=== PATIENT | male | born 1980 | race African-American/Black ===

== ENCOUNTER 2019-12-16 15:24 | Emergency (ER) | payer OTHER, SELFPAY ==
--- NOTE | ~2019-12-16 | XR_ITS ---
EXAMINATION: XR foot RT min 3V EXAM DATE: 12/16/2019 18:44 INDICATION: No known recent injury provided at this time. Pain of the right foot. TECHNIQUE: Right foot dorsoplantar, lateral and oblique projections obtained and reviewed. There is no prior study for comparison. FINDINGS: Right metatarsal bones unremarkable. 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 There are no bony erosions identified. There are no acute fractures or dislocations id entified. There is no subcutaneous gas. There is soft tissue swelling over the forefoot. There are no radiopaque foreign bodies. IMPRESSION: 1. XR foot RT min 3V exam without acute osseous findings. 2. Soft tissue swelling. Reviewed, dictated and finalized at location A.
[2019-12-16 17:13] VITALS: BP 169/92; PULSE 104; RESP 19; TEMP 36.8; O2SAT 98
[2019-12-16 17:33] LABS: Basophils Percent Auto 0.3 % (0.2-1.2); Eosinophils Absolute Auto 0.2 K/mm3 (0-0.3); Eosinophils Percent Auto 2.3 % (0-4.4); Hematocrit 43.2 % (42.0-52.0); Hemoglobin 14.5 g/dL (14.0-18.0); Immature Granulocyte Absolute 0.01 K/mm3 (0.00-0.031); Immature Granulocyte Percent A 0.1 % (0-0.5); Lymphocytes Absolute Auto 2.22 K/mm3 (0.9-3.2); Lymphocytes Percent Auto 28.7 % (18.3-44.2); Mean Corpuscular HGB Conc 33.6 g/dl (32-36); Mean Corpuscular Hemoglobin 27.1 pg (26-34); Mean Corpuscular Volume 80.6 fl (80-100); Mean Platelet Volume 12.5 fl (7.4-10.4); Monocytes Absolute Auto 0.6 K/mm3 (0.1-0.6); Monocytes Percent Auto 7.4 % (2.6-8.5); Neutrophils Absolute Auto 4.7 K/mm3 (1.3-6.7); Neutrophils Percent Auto 61.2 % (45.5-73.1); Platelet Count Result 223 k/mm3 (150-375); Red Blood Count 5.36 M/mm3 (4.6-6.20); Red Cell Distribution Width 13.9 % (11.5-14.5); White Blood Count 7.7 K/mm3 (4.5-10.0)
[2019-12-16 17:43] LABS: Anion Gap 9 mmol/L (8-16); Blood Urea Nitrogen 12 mg/dL (9-20); CRP 1.7 mg/dL (<1.0); Calcium 9.9 mg/dL (8.4-10.2); Carbon Dioxide 31 mmol/L (22-30); Chloride 102 mmol/L (98-107); Estimated CRCL calculation 95 ml/min; Estimated Glomerular Filt Rate > 60; Glucose 103 mg/dL (75-110); Potassium 4.3 mmol/L (3.4-5.0); Sodium 142 mmol/L (137-145); Uric Acid 9.3 mg/dL (3.5-8.5)
--- NOTE | 2019-12-16 19:04 | ED.EXTPRO ---
HPI - Extremity Problem General Chief complaint: Extremity Problem,Nontraumatic Stated complaint: R FOOT SWELLING X3D Time Seen by Provider: 12/16/19 18:34 Source: patient Mode of arrival: ambulatory Limitations: no limitations History of Present Illness HPI Narrative: Patient is a 39-year-old male who presents to emergency department for evaluation of swelling of the right foot with pain about the great toe he denies injury trauma or similar occurrence patient tried [id number] medications with minimal improvement patient presents in no distress notes pain even with light touch or activity and now has some swelling across the forefoot Related Data Home Medications Medication Instructions Recorded Confirmed lisinopril-hydrochlorothiazide 1 tablet PO DAILY 12/16/19 Allergies Allergy/AdvReac Type Severity Reaction Status Date / Time No Known Allergies Allergy Verified 12/16/19 18:52 Review of Systems Review of Systems: All systems reviewed & are unremarkable except as noted in HPI and below PMFSH Past Medical History Medical History (Updated 12/16/19 @ 19:17 by Hever Meneses PA-C) Hypertension Social History Social History (Updated 12/16/19 @ 19:06 by Hever Meneses PA-C) Smoking status: Never smoker Gender identity (if verbalized by the patient): Male Exam Narrative: Exam Narrative: GENERAL: Well-appearing, well-nourished, and in no acute distress. HEAD: Normocephalic, atraumatic. EYES: PERRLA and EOMI. ENT: Nares clear, no rhinorrhea or epistaxis. Mucous membranes moist. CHEST: Clear to auscultation. No respiratory distress. No wheezes rales or rhonchi HEART: Regular rate and rhythm. No murmur heard. EXTREMITIES: Tenderness and swelling of the right great toe with some swelling across the forefoot without tenderness SKIN: Warm, dry, no rash. NEURO: No focal deficits. Alert and oriented x3. Neurovascularly intact. Capillary refill less than 2 seconds PSYCH: Normal mood and affect. Course Course Emergency Course: Patient with probable gout will be treated accordingly given primary care follow-up felt appropriate for outpatient reevaluation Vital Signs Vital signs: Vital Signs Temperature 98.2 F 12/16/19 17:13 Pulse Rate 104 H 12/16/19 17:13 Respiratory Rate 19 12/16/19 17:13 Blood Pressure 169/92 H 12/16/19 17:13 Pulse Oximetry 98 12/16/19 17:13 Temperature 98.2 F 12/16/19 17:13 Pulse Rate 104 H 12/16/19 17:13 Respiratory Rate 19 12/16/19 17:13 Blood Pressure 169/92 H 12/16/19 17:13 Pulse Oximetry 98 12/16/19 17:13 MDM - Extremity (Nontraumatic) MDM Narrative Medical decision making narrative: Patients injury or pain is consistent with musculoskeletal etiology. No signs of neurological or vascular compromise on exam. Compartments and tisues are soft without signs of compartment syndrome. Pain is felt appropriate for further evaluation on an outpatient basis. Patient felt appropriate for outpatient reevaluation given reasons to return Lab Data Result diagrams: 12/16/19 17:21 12/16/19 17:21 Labs: Lab Results 12/16/19 12/16/19 Range/Units 17:21 17:21 WBC 7.7 (4.5-10.0) K/mm3 RBC 5.36 (4.6-6.20) M/mm3 Hgb 14.5 (14.0-18.0) g/dL Hct 43.2 (42.0-52.0) % MCV 80.6 (80-100) fl MCH 27.1 (26-34) pg MCHC 33.6 (32-36) g/dl RDW 13.9 (11.5-14.5) % Plt Count 223 (150-375) k/mm3 MPV 12.5 H (7.4-10.4) fl Immature Gran % (Auto) 0.1 (0-0.5) % Neut % (Auto) 61.2 (45.5-73.1) % Lymph % (Auto) 28.7 (18.3-44.2) % Young % (Auto) 7.4 (2.6-8.5) % Eos % (Auto) 2.3 (0-4.4) % Baso % (Auto) 0.3 (0.2-1.2) % Lymph # (Auto) 2.22 (0.9-3.2) K/mm3 Young # (Auto) 0.6 (0.1-0.6) K/mm3 Eos # (Auto) 0.2 (0-0.3) K/mm3 Baso # (Auto) 0.0 (0.0-0.1) K/mm3 Abs Immat Gran (auto) 0.01 (0.00-0.031) K/mm3 Absolute Neuts (auto) 4.7 (1.3-6.7) K/mm3 Absolute Nucleated RBC
[2019-12-16] MEDS: KETOROLAC (*BKC) 60 MG/2 ML VIAL IM (19:18)
[2019-12-16] MEDS: COLCHICINE 0.6 MG TABLET 1.2 MG PO (19:18)
[2019-12-16 19:53] VITALS: BP 158/78; PULSE 98; RESP 16; O2SAT 100
== END 2019-12-16 19:55 | disposition home or self-care (01) ==
PROVIDERS: Emergency Medicine Emergency Medical Services; Emergency Provider Emergency Medicine; PCP Emergency Medicine
DX: M10.9 Gout, unspecified (principal); I10 Essential (primary) hypertension
CPT/HCPCS: 36415; 73630; 80048; 84550; 85025; 86140; 96372; 99283; A9270; J1885

== ENCOUNTER 2020-07-02 14:58 | Emergency (ER) | payer OTHER, SELFPAY ==
--- NOTE | ~2020-07-02 | XR_ITS ---
EXAMINATION: XR foot LT min 3V DATE: 07/02/2020 15:46 INDICATION: Left foot and ankle pain and swelling TECHNIQUE: Dorsoplantar, two oblique and lateral views of the left foot were obtained. COMPARISON: None. FINDINGS: Alignment is normal. No fracture. Joint spaces are normal. Small heterotopic ossicles along the dista l aspect of the tibiofibular syndesmosis, likely sequela of old trauma. No cortical erosions. Soft ti ssues are unremarkable. No left ankle joint effusion. IMPRESSION: 1. No osseous abnormality of the left foot. Reviewed, dictated and finalized at location A.
[2020-07-02 15:00] VITALS: BP 160/108; PULSE 103; RESP 18; TEMP 36.2; O2SAT 98
--- NOTE | 2020-07-02 15:56 | ED.LOWEXIN ---
HPI - Extremity Injury (Lower) General Chief Complaint: Extremity Injury, Lower Stated Complaint: ankle swelling Time Seen by Provider: 07/02/20 15:11 Source: patient Mode of arrival: ambulatory Limitations: no limitations History of Present Illness HPI Narrative: This is a 39 year old male who presents for evaluation of left foot pain and swelling. He states he woke up with swelling and pain to dorsum of his foot. He had a similar occurrence in his right foot a couple months ago. He states this is similar to previous gout attack. He was prescribed indomethicin at time which resolved his pain. He took tylenol for his pain. He denies injury, numbness, fever, or chills. Related Data Allergies Allergy/AdvReac Type Severity Reaction Status Date / Time No Known Allergies Allergy Verified 07/02/20 15:04 Review of Systems Review of Systems: All systems reviewed & are unremarkable except as noted in HPI and below PMFSH Past Medical History Medical History (Updated 07/02/20 @ 18:51 by Angeles Rolon MD) Gout Hypertension Social History Social History (Updated 12/16/19 @ 19:06 by Hever Meneses PA-C) Smoking status: Never smoker Gender identity (if verbalized by the patient): Male Exam Const: General: no acute distress and alert Nutritional Appearance: obese Orientation/consciousness: patient oriented x3 Eyes: EOM: EOMs intact bilaterally Resp: Effort & Inspection: normal respiratory effort Skin: General skin exam: normal color Rashes: no rashes Neuro: General: patient oriented x3 and moves all extremities Extrem: Other: left foot swelling, no erythema, TTP dorsum at forefoot Psych: Mental Status: mental status grossly normal Affect: normal affect Course Reevaluation(s) Reevaluation #1: I Discussed with patient that he will be presumptively as gout . Labs are unremarkable. He will follow up with PCP on Saturday Date: 07/02/20 Time: 18:39 Vital Signs Vital signs: Vital Signs Temperature 97.1 F L 07/02/20 15:00 Pulse Rate 103 H 07/02/20 15:00 Respiratory Rate 18 07/02/20 15:00 Blood Pressure 160/108 H 07/02/20 15:00 Pulse Oximetry 98 07/02/20 15:00 Temperature 98.9 F 07/02/20 19:03 Pulse Rate 99 07/02/20 19:03 Respiratory Rate 18 07/02/20 19:03 Blood Pressure 168/116 H 07/02/20 19:03 Pulse Oximetry 100 07/02/20 19:03 MDM - Extremity Injury (Lower) Medical Records Attestation: I reviewed the patient's medical records. Lab Data Attestation: I reviewed the patient's lab results. Result diagrams: 07/02/20 18:07 07/02/20 18:07 Labs: Lab Results 07/02/20 07/02/20 07/02/20 Range/Units 18:07 18:07 18:07 WBC 6.9 (4.5-10.0) K/mm3 RBC 5.05 (4.6-6.20) M/mm3 Hgb 13.8 L (14.0-18.0) g/dL Hct 40.8 L (42.0-52.0) % MCV 80.8 (80-100) fl MCH 27.3 (26-34) pg MCHC 33.8 (32-36) g/dl RDW 14.3 (11.5-14.5) % Plt Count 203 (150-375) k/mm3 MPV 11.4 H (7.4-10.4) fl Immature Gran % (Auto) 0.3 (0-0.5) % Neut % (Auto) 56.1 (45.5-73.1) % Lymph % (Auto) 32.5 (18.3-44.2) % [place] % (Auto) 9.6 H (2.6-8.5) % Eos % (Auto) 1.2 (0-4.4) % Baso % (Auto) 0.3 (0.2-1.2) % Lymph # (Auto) 2.23 (0.9-3.2) K/mm3 [place] # (Auto) 0.7 H (0.1-0.6) K/mm3 Eos # (Auto) 0.1 (0-0.3) K/mm3 Baso # (Auto) 0.0 (0.0-0.1) K/mm3 Abs Immat Gran (auto) 0.02 (0.00-0.031) K/mm3 Absolute Neuts (auto) 3.9 (1.3-6.7) K/mm3 Absolute Nucleated RBC 0.0 (0.0-0.012) K/mm3 Nucleated RBC % 0.0 (0.0-0.2) % D-Dimer 0.27 (<0.48) ug/mL Sodium 138 (137-145) mmol/L Potassium 4.1 (3.4-5.0) mmol/L Chloride 105 (98-107) mmol/L Carbon Dioxide 29 (22-30) mmol/L Anion Gap 4 L (8-16) mmol/L BUN 9 (9-20) mg/dL Creatinine 1.00 (0.7-1.3) mg/dL Estim Creat Clear Calc 92 ml/min Estimated GFR > 60 (59 - ) Glucose 109 (75-110)
[2020-07-02] MEDS: COLCHICINE 0.6 MG TABLET 1.2 MG PO (16:35)
[2020-07-02] MEDS: INDOMETHACIN 25 MG CAPSULE 50 MG PO (16:35)
[2020-07-02] MEDS: COLCHICINE 0.6 MG TABLET PO (17:49)
[2020-07-02 17:53] VITALS: BP 159/101; PULSE 91; RESP 20; TEMP 36.6; O2SAT 100
[2020-07-02 18:13] LABS: Basophils Percent Auto 0.3 % (0.2-1.2); Eosinophils Absolute Auto 0.1 K/mm3 (0-0.3); Eosinophils Percent Auto 1.2 % (0-4.4); Hematocrit 40.8 % (42.0-52.0); Hemoglobin 13.8 g/dL (14.0-18.0); Immature Granulocyte Absolute 0.02 K/mm3 (0.00-0.031); Immature Granulocyte Percent A 0.3 % (0-0.5); Lymphocytes Absolute Auto 2.23 K/mm3 (0.9-3.2); Lymphocytes Percent Auto 32.5 % (18.3-44.2); Mean Corpuscular HGB Conc 33.8 g/dl (32-36); Mean Corpuscular Hemoglobin 27.3 pg (26-34); Mean Corpuscular Volume 80.8 fl (80-100); Mean Platelet Volume 11.4 fl (7.4-10.4); Monocytes Absolute Auto 0.7 K/mm3 (0.1-0.6); Monocytes Percent Auto 9.6 % (2.6-8.5); Neutrophils Absolute Auto 3.9 K/mm3 (1.3-6.7); Neutrophils Percent Auto 56.1 % (45.5-73.1); Platelet Count Result 203 k/mm3 (150-375); Red Blood Count 5.05 M/mm3 (4.6-6.20); Red Cell Distribution Width 14.3 % (11.5-14.5); White Blood Count 6.9 K/mm3 (4.5-10.0)
[2020-07-02 18:23] LABS: Anion Gap 4 mmol/L (8-16); Blood Urea Nitrogen 9 mg/dL (9-20); Calcium 9.3 mg/dL (8.4-10.2); Carbon Dioxide 29 mmol/L (22-30); Chloride 105 mmol/L (98-107); Estimated CRCL calculation 92 ml/min; Estimated Glomerular Filt Rate > 60; Glucose 109 mg/dL (75-110); Potassium 4.1 mmol/L (3.4-5.0); Sodium 138 mmol/L (137-145); Uric Acid 8.4 mg/dL (3.5-8.5)
[2020-07-02 18:37] LABS: D Dimer 0.27 ug/mL (<0.48)
[2020-07-02 19:03] VITALS: BP 168/116; PULSE 99; RESP 18; TEMP 37.2; O2SAT 100
[2020-07-02] MEDS: HYDROcodone/acetaminophen (*CRX) 5-325 MG TABLET 1 TAB PO (19:04)
== END 2020-07-02 19:11 | disposition home or self-care (01) ==
PROVIDERS: Emergency Provider General Practice; PCP Emergency Medicine
DX: M79.672 Pain in left foot (principal); M10.9 Gout, unspecified; I10 Essential (primary) hypertension
CPT/HCPCS: 36415; 73630; 80048; 84550; 85025; 85380; 99283; A9270

== ENCOUNTER 2020-10-14 16:03 | Emergency (ER) | payer OTHER, SELFPAY ==
[2020-10-14 16:38] VITALS: BP 184/121; PULSE 104; RESP 17; TEMP 37.4; O2SAT 98
[2020-10-14 18:36] VITALS: BP 183/104; PULSE 94; TEMP 37.4; O2SAT 100
[2020-10-14 22:47] VITALS: BP 160/115; PULSE 100; RESP 16; O2SAT 98
--- NOTE | 2020-10-14 23:08 | ED.GENADULT ---
HPI - General Adult General Chief complaint: Recheck/Abnormal Lab/Rx Stated complaint: having sx after covid vaccine Time Seen by Provider: 10/14/20 21:59 Source: patient Mode of arrival: ambulatory Limitations: no limitations History of Present Illness HPI narrative: 39-year-old male here for a couple of different things He got a Covid vaccination yesterday Today he has fatigue as an achiness and a subjective fever He also had a itchy left eye which is at felt like something was in it but that sensation is virtually completely resolved at this point Last there was mention to him at triage that his blood pressure was quite high and he notes that he was taking lisinopril but found it hard to be in the habit of taking it every day and also found it hard to be in the habit of routinely seeing his primary care doctor for medication refills which they insisted upon so he has not taken it for some time He does not have headaches or chest pain which would seem to be related to the blood pressure elevation Related Data Allergies Allergy/AdvReac Type Severity Reaction Status Date / Time No Known Allergies Allergy Verified 07/02/20 15:04 Review of Systems Review of Systems: All systems reviewed & are unremarkable except as noted in HPI and below Constitutional: Constitutional: Reports no additional constitutional complaints, Reports chills, Reports fatigue, Reports fever(s) and Denies headache(s) Eyes: Eyes: Reports no additional eye complaints and Denies change in vision Comments: Itchy/questionable FB sensation ENT: Denies headache(s) and Denies sore throat Cardiovascular: Cardiovascular: Denies chest pain and Denies dyspnea Respiratory: Respiratory: Denies cough and Denies dyspnea Gastrointestinal: Gastrointestinal: Denies abdominal pain, Denies diarrhea, Denies nausea and Denies vomiting Musculoskeletal: Musculoskeletal: Reports myalgias, Denies deformity, Reports arthralgias and Denies numbness Integumentary/Breasts: Skin/Breast: Denies rash and Denies wounds Neurologic: Reports headache(s), Denies focal weakness and Denies numbness Psychiatric: Psychiatric: Reports no additional psychiatric complaints Endocrine: Endocrine: Reports no additional endocrine complaints Hematologic/Lymphatic: Hematologic/Lymphatic: Reports no additional hematologic/lymphatic complaints Allergic/Immunologic: Allergic/Immunologic: Reports no additional allergic/immunologic complaints [facility] Past Medical History Medical History (Updated 10/14/20 @ 23:09 by Walter Le MD) Gout Hypertension Social History Social History (Updated 12/16/19 @ 19:06 by Hever Meneses PA-C) Smoking status: Never smoker Gender identity (if verbalized by the patient): Male Exam Const: General: cooperative, no acute distress and alert Orientation/consciousness: patient oriented x3 (alert) HENMT: Head: normal to inspection, normocephalic and atraumatic Ears: external ears normal General nose exam: no epistaxis Eyes: Conjunctivae: conjunctivae normal EOM: EOMs intact bilaterally Other: Negative fluorescein, normal intraocular pressure Neck: Neck: normal visual inspection, supple and no JVD Resp: Effort & Inspection: normal respiratory effort and not labored Auscultation: clear to auscultation bilaterally, no rales, no rhonchi, no wheezes and other (BS =) Cardio: Rate: regular rate Rhythm: regular rhythm Heart sounds: no murmurs Skin: General skin exam: normal color and no rashes or lesions noted Neuro: General: patient oriented x3 (alert) and moves all extremities Speech: normal speech Extrem: General: normal to inspection Psych: Affect: normal affect Course Course Emergency Course: Flourescein negative iop 16 Vital Signs Vital signs: Vital Signs Temperature 37.4 C 10/14/20 16:38 Pulse Rate 104 H 10/14/20 16:38 Respiratory Rate 17 10/14/20 16:38 Blood Pressure 184/121 H 10/14/20 16:38 Pulse Oximetry
[2020-10-14 23:41] VITALS: BP 161/114; PULSE 101; RESP 18; TEMP 37.2; O2SAT 97
== END 2020-10-14 23:49 | disposition home or self-care (01) ==
PROVIDERS: Emergency Provider Emergency Medicine; PCP Emergency Medicine
DX: I10 Essential (primary) hypertension (principal); T50.B95A Adverse effect of other viral vaccines, initial encounter; Z87.39 Personal history of other diseases of the musculoskeletal system and connective tissue
CPT/HCPCS: 99283